=== PATIENT | male | born 1960 | race Caucasian/White ===

== ENCOUNTER 2018-08-16 13:32 | Day surgery (SDC) | payer OTHER ==
[2018-08-16] MEDS ORDERED: NS 500 ML IV ONE (13:34)
[2018-08-16] MEDS ORDERED: ATROPINE SULFATE 1 MG/10 ML SYR IVP ONE (13:34)
[2018-08-16] MEDS ORDERED: BENZOCAINE UNIT DOSE SPRAY HURRICAINE MM ONE (13:34)
[2018-08-16] MEDS ORDERED: fentaNYL 100 MCG/2 ML INJ IVP ONE (13:34)
[2018-08-16] MEDS ORDERED: MIDAZOLAM 2 MG/2 ML VIAL IVP ONE (13:34)
--- NOTE | 2018-08-16 14:42 | PDANEPAE ---
ANE History of Present Illness 58 yo with afib ANE Past Medical History - Cardiovascular History Hx Hypertension: No Hx Arrhythmias: Yes Hx Chest Pain: No Hx Coronary Artery / Peripheral Vascular Disease: No Hx CHF / Valvular Disease: No Hx Palpitations: No - Pulmonary History Hx COPD: No Hx Asthma/Reactive Airway Disease: No Hx Recent Upper Respiratory Infection: No Hx Oxygen in Use at Home: No Hx Sleep Apnea: No - Neurologic History Hx Cerebrovascular Accident: No Hx Seizures: No Hx Dementia: No - Endocrine History Hx Diabetes: No Hypothyroid: No Hyperthyroid: No Obesity: no - Renal History Hx Renal Disorders: No - Liver History Hx Hepatic Disorders: No - Neurological & Psychiatric Hx Hx Neurological and Psychiatric Disorders: No - Cancer History Hx Cancer: No - GI History Hx Gastrointestinal Disorders: No ANE Review of Systems Review of systems is: negative Review of Systems: - Exercise capacity METS (RN): 4 METS ANE Patient History - Allergies Allergies/Adverse Reactions: No Known Drug Allergies Allergy (Verified 08/16/18 13:34) - Home Medications Home medications: home medication list seen and reviewed - NPO status NPO Status: no food or drink >8 hours - Anes Hx Anes Hx: no prior problems - Smoking Hx Smoking Status: Never smoked Marijuana use: No - Alcohol Use Alcohol Use: Rarely - Family Anes Hx Family Anes Hx: none ANE Labs/Vital Signs - Labs Result Diagrams: 08/16/18 13:50 ANE Physical Exam - Airway Neck exam: FROM Mallampati Score: Class 2 Mouth exam: normal dental/mouth exam - Pulmonary Pulmonary: no respiratory distress, clear to auscultation - Cardiovascular Cardiovascular: regular rate and rhythym, no murmur, rub, or gallop - ASA Status ASA Status: II ANE Anesthesia Plan Anesthesia Plan: GA with mask Total IV Anesthesia: Yes
[2018-08-16] MEDS ORDERED: PROPOFOL/EMULSION 500 MG/50 ML BOTTLE IV ONE (14:46)
--- NOTE | 2018-08-16 14:46 | PDHPUP ---
History & Physical Update H&P update statement: This history and physical update is based on an assessment of the patient which was completed after admission or registration (within 24 hours), but prior to the surgery/procedure. H&P update: H&P reviewed & patient examined, no change in patient's condition since H&P completed
[2018-08-16 14:49] LABS: INR 1.12 (0.83-1.16); PROTIME(PATIENT) 14.6 SEC (12.0-15.0)
--- NOTE | 2018-08-16 15:27 | PDTEE1 ---
ELENA Cardioversion Procedure Procedure: electrical cardioversion, transesophageal echo Indications: atrial fibrillation Consent: signed and in chart Anticoagulation: eliquis Procedural Details: Sedation provided by the anesthesia service. Pads were placed in anterior- posterior position. ELENA probe was advanced and standard images obtained. There is no evidence of left atrial or left atrial appendage thrombus. Synchronized cardioversion attempt #1: 200J Results: normal sinus rhythm
--- NOTE | 2018-08-16 17:20 | CPEKG ---
Test Reason : OPEN Blood Pressure : / mmHG Vent. Rate : 052 BPM Atrial Rate : 000 BPM P-R Int : 153 ms QRS Dur : 096 ms QT Int : 413 ms P-R-T Axes : 000 080 012 degrees QTc Int : 384 ms Atrial fibrillation Agree with above. Confirmed by Jose Enrique Myers ([id number]) on 08/16/2018 5:19:46 PM Referred By: Confirmed By:Jose Enrique Myers
--- NOTE | 2018-08-16 17:22 | CPEKG ---
Test Reason : OPEN Blood Pressure : / mmHG Vent. Rate : 068 BPM Atrial Rate : 067 BPM P-R Int : 212 ms QRS Dur : 099 ms QT Int : 428 ms P-R-T Axes : 059 076 010 degrees QTc Int : 456 ms Sinus rhythm -- Restored since August 16, 2018, 13:43 First degree AV block Probable left atrial enlargement Confirmed by Jose Enrique Myers ([id number]) on 08/16/2018 5:21:41 PM Referred By: Confirmed By:Jose Enrique Myers
--- NOTE | 2018-08-17 17:10 | ECHO ---
[email or web address] [address] [address] Main: [phone] Fax: Transesophageal Echocardiography Name: PORSHA KAUFMAN MR#: [id number] Study Date: 08/16/2018 Study Time: 03:03 PM Date of : 1960 Age: 58 year(s) Height: ( ) Weight: ( ) BSA: Gender: Male Examination: ELENA Indication: New onset of atrial fibrillation., Pre Cardioversion Image Quality: Contrast: Requested by: Bernice Kaye Heart Rate: Rhythm: BP: / Procedure Staff Sheet Metal Fabricator: Ernst Reeder RDCS Reading Physician: Bernice Kaye MD Requesting Provider: ELENA Exam Details Conclusions: Normal global systolic LV function. No thrombus in left appendage. Proceeded with successful elective DC cardioversion.. No significant valvular disease Measurements: Chambers Valvular Assessment AV/MV Valvular Assessment TV/PV Normal Normal Normal Name Value Range Name Value Range Name Value Range Additional Measurements: Findings: Left Ventricle: Normal global systolic LV function. Right Ventricle: Normal RV function. Left Atrial Appendage: Good color flow doppler in the left atrial appendage. No thrombus in left appendage. Right Atrium: The right atrium is normal in size. Mitral Valve: Patient: PORSHA KAUFMAN Study Date: 08/16/2018 Page 1 of 2 03:03 PM The mitral valve is normal in appearance. Trivial mitral valve regurgitation. Aortic Valve: The aortic valve is tri-leaflet. There is no significant aortic valve regurgitation. No aortic valve stenosis is present. Tricuspid Valve: The tricuspid valve is normal in appearance and function. Pulmonic Valve: The pulmonic valve is normal in appearance and function. Aorta: The aorta is normal. Pericardium: No pericardial effusion. Exam Comments: Proceeded with successful elective DC cardioversion.. l1n (No Signature Object) Patient: PORSHA KAUFMAN Study Date: 08/16/2018 Page 2 of 2 03:03 PM [id number]
== END 2018-08-16 16:43 | disposition home or self-care (01) ==
LOC: FCATH 13:32
PROVIDERS: ATTEND Internal Medicine Cardiovascular Disease
DX: I48.91 Unspecified atrial fibrillation (principal); G47.30 Sleep apnea, unspecified
CPT/HCPCS: J0461; J2250; J2704

== ENCOUNTER 2019-02-28 11:01 | Observation (INO) | payer OTHER | END 2019-03-01 11:16 | disposition home or self-care (01) | LOC: FCATH 11:01 → F2N 16:07 ==